=== PATIENT | male | born 1985 | race Two or more races ===

== ENCOUNTER 2024-05-04 11:09 | Emergency (ER) | payer MEDICAID, OTHER ==
[~2024-05-04] VITALS: Ht 165.1 cm; Wt 72.6 kg
[2024-05-04] MEDS ORDERED: TETRAcaine 5 ML BOTTLE ONE (11:42)
[2024-05-04] MEDS ORDERED: FLUORESCEIN SODIUM OPHTH 1 EA STRIP ONE (11:42)
[2024-05-04] MEDS: TETRACAINE HCL 0.5% OPHTALMIC 15 ML BOTTLE OP ONE (11:43)
[2024-05-04] MEDS: FLUORESCEIN SODIUM OPHTH 1 EA STRIP OP ONE (11:43)
[2024-05-04 12:26] VITALS: BP 142/81; TEMP 98.5; O2SAT 97
== END 2024-05-04 12:28 | disposition home or self-care (01) ==
LOC: ER 12:06
DX: H57.11 Ocular pain, right eye (principal)